=== PATIENT | male | born 1945 | race Caucasian/White ===

== ENCOUNTER 2020-03-14 08:26 | Day surgery (SDC) | payer OTHER, BC ==
[2020-03-08 10:52] VITALS: BMI 22.7
[2020-03-14 10:06] VITALS: TEMP 98
[2020-03-14 10:24] VITALS: PULSE 64
[2020-03-14 10:31] VITALS: BP 125/70
== END 2020-03-14 10:32 | disposition home or self-care (01) ==
LOC: FASU-ENDO 08:26
PROVIDERS: ATTEND Internal Medicine Gastroenterology
PROC: 0DJD8ZZ Inspection of Lower Intestinal Tract, Via Natural or Artificial Opening Endoscopic (ICD-10-PCS; principal; 2020-03-14 09:37)
DX: Z09 Encounter for follow-up examination after completed treatment for conditions other than malignant neoplasm (principal); Z86.010 Personal history of colon polyps; Z80.0 Family history of malignant neoplasm of digestive organs